=== PATIENT | male | born 1950 | race Caucasian/White ===

== ENCOUNTER 2017-05-26 06:06 | Inpatient (IN) ==
[2017-05-26] MEDS ORDERED: Lidocaine -MPF 1% 2 ML VIAL ID ONE (06:35)
[2017-05-26] MEDS ORDERED: CeFAZolin Pre 2,000 MG/100 ML 2,000 MG/100 ML BAG IVPB ONE (06:35)
[2017-05-26] MEDS ORDERED: Albuterol 2.5 MG/3 ML NEBULIZER IH ONE (06:35)
[2017-05-26] MEDS ORDERED: Albuterol 2.5 MG/3 ML NEBULIZER ONE (06:38)
[2017-05-26] MEDS ORDERED: Ringers Solution, Lactated 1,000 ML IVC SCH (06:45)
[2017-05-26] MEDS ORDERED: Lidocaine -MPF 2% 2 ML VIAL ONE ×2 (07:02→07:20)
[2017-05-26] MEDS ORDERED: *HR* Heparin 5,000 UNIT/ML VIAL ONE (07:02)
[2017-05-26] MEDS ORDERED: Ondansetron 4 MG/2 ML VIAL ONE (07:02)
[2017-05-26] MEDS ORDERED: *HR* Phenylephrine 10 MG/ML VIAL ONE (07:02)
[2017-05-26] MEDS ORDERED: *HR* Rocuronium Bromide 50 MG/5 ML VIAL ONE (07:02)
[2017-05-26] MEDS ORDERED: Lidocaine -MPF 4% 5 ML AMPUL ONE (07:02)
[2017-05-26] MEDS ORDERED: Water for inj. (sterile) 10 ML IV ONE (07:02)
[2017-05-26] MEDS ORDERED: Dexamethasone 4 MG/ML VIAL ONE (07:02)
--- NOTE | 2017-05-26 07:07 | Anesthesia Evaluation PreOp ---
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) Other Medical History: Renal (stones, ckd) Alcohol Use: rarely Drug use: none Medications and Allergies Allergies No Known Allergies Allergy (Verified 05/26/17 06:34) - Meds/Allergy Pre-op Review Medications Reviewed: Yes Allergies Reviewed: Yes Beta Blockers on Current Med List: No Anesthesia Results - Labs Laboratory Tests 05/19/17 05/19/17 05/19/17 07:57 07:57 07:57 WBC 8.7 Hgb 15.9 Hct 47.0 Plt Count 187 PT 10.7 INR 1.0 APTT 30.4 Sodium 142 Potassium 4.4 Chloride 110 H Carbon Dioxide 26 BUN 17 Est GFR ( Amer) > 60 Est GFR (Non-Af Amer) > 60 BUN/Creatinine Ratio 14 Glucose 91 Calculated Osmolality 295 - Imaging EKG: report reviewed, image reviewed (SR; low QRS voltages in limb leads) Additional studies: 05-06-2017 Nuclear stress test: perfusion imaging was negative for ischemia or infarct pharmacologic ECG was negative for ischemia at the level of heart rate achieved patient describes 3 out of 10 chest pain during pharm perfusion imaging which can be nonspecific finding recommend clinical correlation Gated EF = 57% Anesthesia Exam Last Vital Signs Temp 97.7 F 05/26/17 06:46 Pulse 90 05/26/17 06:46 Resp 18 05/26/17 06:46 BP 119/90 05/26/17 06:46 Pulse Ox 98 05/26/17 06:46 Weight: 69 kg NPO (# of Hours): >> 8 hrs - HEENT Pupil (Motor): Pupils equal, EOMI Mallampati: I Teeth: Edentulous Denture Type: Upper: Complete, Lower: Complete Oral Opening: Greater than 3 - INSTRUCTIONAL TECHNOLOGY SPECIALIST LOC: Oriented INSTRUCTIONAL TECHNOLOGY SPECIALIST Motor: Normal RUE, Normal LUE, Normal RLE, Normal LLE, Normal Face - Cardiac Rhythm: Regular Murmur: None - Pulmonary Breath Sounds: bilateral Clear Respiratory Effort: Symmetrical Anesthesia Assess/Plan ASA Score: 3 Modified Casanova Scale for Level of Consciousness: Cooperative, oriented, and tranquil Anesthetic Plan: General Monitoring Plan: Standard Monitors, A-Line Recovery Plan: PACU
[2017-05-26] MEDS ORDERED: *HR* Remifentanil 2 MG VIAL IVP ONE (07:09)
[2017-05-26] MEDS ORDERED: *HR* FentaNYL (PF) 100 MCG/2 ML VIAL ONE (07:09)
[2017-05-26] MEDS ORDERED: *HR* Propofol 200 MG/20 ML VIAL IVP ONE (07:09)
[2017-05-26] MEDS ORDERED: *HR* Midazolam HCl 2 MG/2 ML VIAL ONE (07:09)
[2017-05-26] MEDS ORDERED: Heparin 1,000 UNITS/500 mL NS 1,500 ML ONE (07:16)
[2017-05-26] MEDS ORDERED: EPHEDrine 50 MG/ML VIAL ONE (07:17)
[2017-05-26] MEDS ORDERED: Heparin 1,000 UNITS/500 mL NS 500 ML ONE ×2 (07:24→09:32)
--- NOTE | 2017-05-26 07:32 | History & Physical Report ---
Date of Encounter: 05/26/17 Time of Encounter: 07:25 24 Hour HP Update - Instructions Instructions: If the History and Physical is less than 30 days old and was completed prior to A.M. admission and or procedure and has NOT been updated on calendar day of procedure please complete this update prior to performing procedure. - Update Patient reports changes in Medical Condition: No Changes in examination, assessment, or condition: No Changes in Medication: No Preop tests/diagnostics Reviewed: Yes Surgery Remains Indicated: Yes Consent for Planned Operative Procedure(s) Verified: Yes - Pre-Operative Checklist Preoperative Checklist Indicated: Yes Prophylactic Antibiotic Ordered: Yes Home Medications Include Beta Jessie: No Beta Jessie Taken Today (Day of Surgery): No Beta Jessie Taken Yesterday (Day Prior to Surgery): No Is VTE Prophylaxis Indicated?: Yes
[2017-05-26] MEDS ORDERED: *HR* HYDROmorphone (PF) 1 MG/ML SYRINGE IVP PRN (08:41)
[2017-05-26] MEDS ORDERED: *HR* Labetalol 20 MG/4 ML SYRINGE IVP PRN (08:41)
[2017-05-26] MEDS ORDERED: Dexamethasone 4 MG/ML VIAL IVP ONE (08:41)
[2017-05-26] MEDS ORDERED: *HR* Morphine 2 MG/ML SYRINGE IVP PRN ×2 (08:41→11:40)
[2017-05-26] MEDS ORDERED: Ondansetron 4 MG/2 ML VIAL IVP ONE (08:41)
--- NOTE | 2017-05-26 08:41 | Anesthesia Procedures ---
<Jesus Valencia - Last Filed: 05/26/17 08:40> Date of Encounter: 05/26/17 Procedures: Anesthesia - Arterial Line Consent obtained: verbal consent Time out performed: Yes Sedation: Versed (mg): 2 Supplemental Oxygen via Nasal Cannula (L/min): 2 Local Anesthetic: Lidocaine 1% Amount of Anesthetic used (mls): 0.5 Size (Gauge): 20 Length (inches): 1 3/4 Technique Used: sterile prep, direct puncture technique Post-Procedure: line taped into place, dry sterile dressing placed Patient tolerated procedure: well, no complications Complications: none Site: Radial R Vitals: Vital Signs/O2 Sat/Glucose, Most Recent Temp Pulse Resp BP Pulse Ox 97.7 F 90 18 119/90 98 05/26/17 06:46 05/26/17 06:46 05/26/17 06:46 05/26/17 06:46 05/26/17 06:46 Comments: [facility] <Beulah Lieberman - Last Filed: 05/26/17 11:26> Date of Encounter: 05/26/17 Time of Encounter: 07:35
[2017-05-26] MEDS ORDERED: *HR* Morphine 10 MG/ML VIAL ONE (10:03)
--- NOTE | 2017-05-26 10:20 | Operative Note ---
Date of procedure: 05/26/17 Pre-op diagnosis: AAA Post-op diagnosis: same Procedure: Endovascular repair of AAA(EVAR) using Medtronic Endurant IIs System Open femoral exposure - bilateral Non selective catheter/sheath placement into aorta Endo AAA repair with modular bifurcated device Radiologic Supervision & Interpretation Complications: none Anesthesia: GETA Surgeon: Jose Laguerre Co-Surgeon: Matt Jones Estimated blood loss (cc): 100 Specimen: none Condition: stable Disposition: PACU Procedure in Detail: History Jose Roldan is a 66-year-old white male who was found to have an abdominal aortic aneurysm. He has a remote history of Acosta Fischer A syndrome. He has chronic problems with diminished energy. Procedure After informed consent was obtained the patient was taken to the operating room. General endotracheal anesthesia was established. A timeout protocol was observed. A 2 team surgical approach was indicated in this case in order to expedite complex intraoperative decision making as well as to diminish blood loss and to expedite placement of the endovascular stent graft. The common femoral arteries were then exposed through oblique incisions in the groin bilaterally. This was performed simultaneously. The vessels were exposed and controlled with vessel loops. The vessels were normal in size and soft though there was changes suggesting posterior plaque formation. Using an 18- gauge needle the arteries were punctured and a guidewire was inserted. The needle was removed and a 8 Cuban sheath was placed. The dilator was removed and the sheath was aspirated and flushed. A marker pigtail catheter was then advanced over the right side and placed in the abdominal aorta. The catheter was placed in the supra renal aorta and an abdominal aortogram was then performed. Taking the appropriate measurements and configurations of the vessels the pigtail catheter was removed and then placed on the left side. It should be noted that 5000 units of heparin were administered at the time of the sheath placement in the groin. The main body was placed via the right side. This was a 25 x 14 x 103 mm Endurant IIs device. The suprarenal fixation was also achieved under fluoroscopic control. The docking limb was opened. Then the left side approach was used to cannulate the main body through the left limb. Appropriate positioning was confirmed. Another injury and was performed through a retrograde injection through the left groin sheath. A 16 x 13 x 156 mm device was selected. This was then deployed under fluoroscopic control. The carrier device was removed and the 11 Cuban sheath was then placed into the left groin. Attention was then directed back to the right side. The right side was then completely deployed. The top Was recaptured and then removed. An 11 Cuban sheath was placed into the right groin. The pigtail catheter was placed in the right groin. A retrograde angiogram through the right groin sheath was performed and measurements were taken. The third and final component of the repair was then deployed. This was a 16 x 13 x 124 mm device. This was secured in position and was placed above the iliac bifurcation. With this in position the Reliant balloon was then placed via both the right and left side and the stent graft was gently opened to its full extent using the effect of the balloon. The pigtail catheter was then reinserted via the right side. A completion aortogram was then performed. This demonstrated patency of the renal arteries bilaterally. It also demonstrated patency of the iliac bifurcation bilaterally. There were no findings of endovascular leak area with this done the wire and catheters were removed. The sheaths were then removed from the groin and the puncture sites were repaired with 6-0 Prolene. After appropriate backbleeding and flushing the clamps removed and pulsatile flow was restored into the lower extremities. There was no hemodynamic distress with this maneuver. Excellent pulsations were found in the femoral vessels and this was confirmed by the use of an intraoperative Doppler. The wounds were irrigated with antibiotic containing solution. Hemostasis was achieved. The wounds were then closed using absorbable suture. A dry sterile dressing was applied. The patient was extubated in the operating room. He was neurologically and respiratory stable. He was then taken to the recovery room. Estimated blood loss is 100 mL. There were no intraoperative complications.
--- NOTE | 2017-05-26 10:42 | Anesthesia Evaluation Post Op ---
Date of Encounter: 05/26/17 Time of Encounter: 10:41 - Vital Signs Vital Signs: Vital Signs/O2 Sat, Most Current Temp Pulse Resp BP Pulse Ox 97.4 F L 81 17 123/94 95 05/26/17 10:20 05/26/17 10:30 05/26/17 10:30 05/26/17 10:30 05/26/17 10:30 - Lungs Lungs: Clear Ascult./Percussion - Airway Airway: Non-obstructed - Cardiovascular Regular Rate - Mental Status Mental Status: Alert & Oriented, Answers Appropriately - Pain Pain Scale: 0 Pain Scale used: Numeric (1 - 10) - Hydration Hydration: NPO, Rodarte catheter - Discharge PostOp Status: Transfer Patient to floor
[2017-05-26] MEDS ORDERED: Ondansetron 4 MG/2 ML VIAL IVP PRN (11:40)
[2017-05-26] MEDS ORDERED: Naloxone 0.4 MG/ML INJ IVP PRN (11:40)
[2017-05-26] MEDS ORDERED: Acetaminophen 325 MG TABLET PO PRN (11:40)
[2017-05-26] MEDS: *HR* HYDROcodone/Acet 5/325 mg TABLET PO PRN ×2 (12:58→21:15)
[2017-05-26] MEDS: *HR* Morphine 2 MG/ML SYRINGE IVP PRN ×2 (15:14→19:31)
--- NOTE | 2017-05-26 15:47 | Operative Note ---
Date of procedure: 05/26/17 Pre-op diagnosis: Abdominal Aortic Aneurysm Post-op diagnosis: same Procedure: 1. Introduction of catheter into the aorta via right common femoral artery. 2. Introduction of catheter into the aorta via left common femoral artery. 3. Right common and external iliac artery angioplasty with 8 x 40mm balloon 4. Right femoral vessel exposure for endograft placement. 5. Left femoral vessel exposure for endograft placement. 6. Medtronic Endurant modular bifurcated aortic endograft placement with 1 docking limb including radiologic supervision and interpretation. 7. Placment of Right extension limb including radiologic supervision and interpretation. Complications: None Anesthesia: DUNIA Surgeon: Matt Jones Co-Surgeon: Jose Laguerre Estimated blood loss (cc): 100 Specimen: None Condition: stable Procedure in Detail: The patient was identified, brought to the operating room and placed in the supine position on the operating room table. After induction of general endotracheal anesthesia, the patient was cleaned and draped in normal sterile fashion. Oblique incisions were made over both groins sharply. Hemostasis was obtained with electrocautery. Using blunt and sharp and electrocautery dissection, the bilateral common, deep and superficial femoral arteries were dissected circumferentially and surrounded with Vesseloops. At this point, the patient received heparin intravenously and then bilateral femoral punctures with large-bore needles were performed. J wires were advanced into the aorta under fluoroscopic view. The right wire initially would not advance into the aorta. Therefore a dash catheter and glidewire were used. The patient had a preexisting right common iliac stent. Given the difficulty advancing the wire, an angiogram was performed. An angioplasty was then performed with an 8 x 40mm balloon. A completion image revealed no significant residual stenosis. Given the anatomy, the main body was selected to be the right side in this patient. The needles were exchanged for bilateral sheaths and a long Pigtail catheter was advanced over the right wire into the aortic arch. A retrograde angiogram was performed to evaluate the left iliac system due to the presence of a previously placed iliac stent and possible stenosis on CT scan. The angiogram revealed that the left iliac vessels were appropriate for endograft placement. The wire was removed and an angiogram was then performed via a pigtail catheter for sizing of the graft. The wire was replaced with a stiff wire. The catheter was removed and repositioned in the suprarenal aorta via the left femoral artery. The main body was inserted over the stiff wire with the contralateral limb being in the ipsilateral position. An aortogram was then performed at the level of the renal artery. The graft was positioned just inferior to the renal arteries and the contralateral limb exposed. A final angiogram was performed confirming adequate infrarenal placement. The suprarenal stent was deployed in the usual fashion. The contralateral limb was then selected with a wire using a guiding catheter. Intragraft placement of the wire was confirmed by placing the pigtail and spinning it freely. An oblique view of the pelvis was performed with contrast to size the left extension limb. The sheath was removed and exchanged for the appropriate limb, which was advanced under fluoroscopic view and positioned. It was then expanded. The introducer and graft sheath were exchanged for a sheath. An oblique view of the right pelvis was performed and the length of the extension limb on the right was determined. The sheath was exchanged for the limb and then the limb was deployed. The introducer and graft sheath were exchanged for a sheath. Upon completion of the graft docking limb extension, a Reliant balloon was then advanced into the graft proximal and distal endpoints as well as overlap were expanded with gentle pressure. A flush completion angiogram revealed no evidence of an endoleak. Further imaging of the right femoral vessels revealed no evidience of stenosis. Tension was applied to the Vesseloops in the groin. The sheaths and wires were then removed. The bilateral arteriotomies were repaired with a running 6-0 Prolene. Antibiotic irrigation was infused into the groin. The bilateral groins incisions were closed with 2-0 Vicryl, 3-0 Vicryl and 4-0 Vicryl. Sterile dressings were applied. The patient was then extubated and taken to the recovery room in stable condition. Main Body: [id number] Right Limb: [id number] Left Limb: [id number]
[2017-05-27 08:15] LABS: BUN/Creatinine Ratio 16 (6-26); Blood Urea Nitrogen 17 mg/dL (8-26); Calcium 8.7 mg/dL (8.6-10.8); Carbon Dioxide 25 mEq/L (19-29); Chloride 107 mEq/L (98-109); Glucose 78 mg/dL (70-99); Osmolality,Calculated 290 (280-300); Potassium 3.9 mEq/L (3.5-4.5); Sodium 140 mEq/L (136-145); eGFR For African Americans > 60 (> 60); eGFR For Non-African Americans > 60 (> 60)
[2017-05-27] MEDS: *HR* HYDROcodone/Acet 5/325 mg TABLET PO PRN (08:18)
[2017-05-27 08:30] LABS: Basophils % 0.2 %; Eosinophils # 0.1 K/mcL (0.0-0.6); Eosinophils % 0.5 %; Hematocrit 41.5 % (37.5-50.1); Hemoglobin 13.8 g/dL (12.9-16.9); Immature Granulocytes % 0.6 % (0-4); Lymphocytes # 1.8 K/mcL (0.6-4.6); Lymphocytes % 13.9 %; Mean Corpuscular HGB Conc 33.3 g/dL (31.6-35.5); Mean Corpuscular Hemoglobin 31.4 pg (28.0-33.3); Mean Corpuscular Volume 94.3 fL (83.0-100.0); Monocytes # 0.9 K/mcL (0.0-1.3); Monocytes % 7.3 %; Neutrophils # 9.8 K/mcL (1.6-8.9); Platelet Count 150 K/mcL (140-400); Red Cell Distribution Width 13.5 % (11.5-14.5); Segmented Neutrophils % 77.5 %
[2017-05-27] MEDS ORDERED: (Fluticasone/Vilanterol [Breo Ellipta 100-25 Mcg Inh]) IH SCH (10:00)
[2017-05-27 11:41] VITALS: BP 98/68
--- NOTE | 2017-05-27 12:46 | Discharge Summary ---
Date of Encounter: 05/27/17 Time of Encounter: 12:43 - Discharge Diagnosis (1) AAA (abdominal aortic aneurysm) without rupture Priority: Primary Status: Acute Comments: Patient had an abdominal aortic aneurysm. He was identified on scanning. He was prepared for surgery. Operation was performed yesterday without incident. He tolerated the operation and a general anesthetic without complication. He was felt fit for discharge on postoperative day #1. - Discharge Medications Home Medications: Fluticasone/Vilanterol [Breo Ellipta 100-25 Mcg INH] 1 each IH DAILY 05/26/17 [ History] Sertraline [Zoloft] 100 mg PO CAVAZOS 05/26/17 [History] Allergies/Adverse Reactions: Allergies No Known Allergies Allergy (Verified 05/26/17 07:48) Date of admission: 05/26/17 10:53 Primary care physician: Nieves Casper CNP Consults: None Procedure(s) Performed: Endovascular repair of abdominal aortic aneurysm Discharging clinician: Jose Laguerre Anticipated date of discharge: 05/27/17 - Patient Status Disposition: Home, Self-Care Condition: Good Functional capacity at discharge: independent ambulation Overall status at discharge: patient is progressing back to baseline - Discharge Instructions Instructions: Abdominal Aortic Aneurysm (DC), Endovascular Abdominal Aortic Aneurysm Repair (DC) Follow Up With: Nieves Casper CNP [Primary Care Provider] - (SENT REQUEST ON 05-26-17 @ [id number]) Jose Laguerre MD [Partnered Physician] - 06/17/17 9:45 am Additional Instructions: Keep groin incisions dry for total of 5 days following surgery. No automobile driving. No lifting greater than 10 pounds No manual labor Patient may ambulate as tolerated and may use stairs as tolerated Patient may be a passenger in an automobile Patient is to resume usual home medications - Diet and Activity Activity: increase activity as tolerated Diet: advance to your usual diet - Hospital Course Hospital course: Mr. Rlodan is a 66 year old male With a known abdominal aortic aneurysm. Patient was admitted yesterday. He underwent an endovascular repair of an abdominal aortic aneurysm. There were no periprocedural complications. Approximately 90 mL of contrast were used. The patient had uneventful postoperative course. He was felt fit for discharge on the afternoon of postoperative day #1. Instructions were given in regards to diet and exercise medications and wound care. - Time Spent with Patient Total time spent providing and/or coordinating discharge services: Exam Vital Signs, Last 4 Hours Temp Pulse Resp BP Pulse Ox 05/27/17 11:36 98.8 F 71 13 98/68 92 General: Present: Conversant, No Apparent Distress, Well developed, Well nourished HEENT: Present: Atraumatic Neck: Absent: JVD Cardiac: Present: Reg Rate and Rhythm, Normal S1 and S2 Lungs: Present: Normal Breath Sounds Neuro: Present: Alert and responsive, No focal deficits noted, Cranial nerves grossly intact, Motor nerves grossly intact, Sensory nerves grossly intact Abdomen: Present: Soft, Non-tender. Absent: Masses Vascular: Present: Pulse, normal, Surgical incisions (Surgical incisions are clean and dry) Skin: Present: No rashes noted on visualized skin - VTE Documentation of Mechanical Device: Intermittent pneumatic compression device
== END 2017-05-27 13:36 | disposition home or self-care (01) | DRG 269 ==
LOC: SAMDAY 06:06 → 2NNU 10:53
PROVIDERS: ADMIT Surgery Vascular Surgery; ATTEND Surgery Vascular Surgery

== ENCOUNTER 2017-09-20 18:29 | Inpatient (IN) ==
[2017-09-20] MEDS ORDERED: 0.9 % Sodium Chloride 1,000 ML IVC ONE (18:39)
[2017-09-20] MEDS ORDERED: Azithromycin 500 MG in D5% in Water 250 ML IVPB ONE (18:39)
[2017-09-20] MEDS ORDERED: cefTRIAXone 2,000 MG in Water for inj. (sterile) 10 ML IVP ONE (18:39)
[2017-09-20] MEDS ORDERED: Ipratropium/Albuterol Neb 3 ML IH ONE (18:45)
[2017-09-20] MEDS ORDERED: Piperacillin/Tazobactam 3.375 GM in Water for inj. (sterile) 20 ML IVPB ONE (18:50)
[2017-09-20] MEDS ORDERED: Vancomycin 1,000 MG in D5% in Water 250 ML IVPB ONE (18:50)
[2017-09-20 19:23] LABS: Basophils % 0.3 %; Hematocrit 43.7 % (37.5-50.1); Hemoglobin 14.8 g/dL (12.9-16.9); Immature Granulocytes % 0.6 % (0-4); Immature Platelets 6.9 % (1.1-6.1); Lymphocytes # 0.5 K/mcL (0.6-4.6); Lymphocytes % 7.7 %; Mean Corpuscular HGB Conc 33.9 g/dL (31.6-35.5); Mean Corpuscular Hemoglobin 31.6 pg (28.0-33.3); Mean Corpuscular Volume 93.2 fL (83.0-100.0); Mean Platelet Volume 11.2 fL (9.4-12.4); Monocytes # 0.3 K/mcL (0.0-1.3); Monocytes % 3.9 %; Red Blood Count 4.69 M/mcL (4.19-5.50); Red Cell Distribution Width 13.7 % (11.5-14.5); Segmented Neutrophils % 87.5 %
--- NOTE | 2017-09-20 19:32 | Emergency Department Note ---
Disposition Clinical Impression: Acute exacerbation of chronic obstructive airways disease, Acute respiratory distress, Hypoxemia Community acquired pneumonia Qualifiers: Laterality: unspecified laterality Qualified Code(s): J18.9 - Pneumonia, unspecified organism Disposition: Admitted As Inpatient Condition: Fair Referrals: Nieves Casper CNP [Primary Care Provider] - Forms: ED Satisfaction Letter Time of Disposition: 20:21 SOB HPI - General Chief Complaint: ED Shortness of Breath/Dyspnea Stated Complaint: KENNY, fever Time Seen by Provider: 09/20/17 18:37 Source: EMS Limitations: no limitations Nursing Notes Reviewed: Yes Vital Signs Reviewed: Yes - History of Present Illness Patient presents with shortness of breath for the last one week which is constant and progressively worsening and he had such severe shortness of breath he was not even able to walk to the car so they called EMS which transported him to the emergency department. Did have a temperature 103 degrees last night. Has not seen a doctor. Is not taking any medications. At one point had been on home oxygen but felt like it was not helping him so he stopped taking it. The patient does not have any pain or swelling of the lower extremities. No chest pain. Does have rhinorrhea, cough, sneezing. No blurred vision. No blood in the urine or stool. No bruising the skin. Does have a rash on the right arm and in the left axillary area and the left flank. Social history: Smoker - Related Data Home Medications Medication Instructions Recorded Confirmed Fluticasone/Vilanterol [Breo 1 each IH DAILY 05/26/17 05/26/17 Ellipta 100-25 Mcg INH] Sertraline [Zoloft] 100 mg PO CAVAZOS 05/26/17 05/26/17 Allergies Allergy/AdvReac Type Severity Reaction Status Date / Time No Known Allergies Allergy Verified 05/26/17 07:48 Review of Systems: As Per HPI Past Medical History - Past Medical History Medical history: Reports: aortic aneurysm, COPD, hyperlipidemia Psychiatric history: Reports: anxiety - Social History Smoking Status: Current every day smoker Smokeless Tobacco Status: No Alcohol use: Reports: rarely Drug use: Reports: none Physical Exam CONSTITUTIONAL: Alert and oriented X3, thin, moderate to severe respiratory distress, nonrebreather mask in place with oxygen saturation 95% HEAD: Normocephalic; atraumatic. EYES: PERRL, no scleral icterus. NOSE: The nose is normal in appearance without rhinorrhea RESP: Normal chest excursion with respiration; breath sounds with bilateral wheezing and crackles which is symmetric CARD: Regular rhythm, without murmurs, rub or gallop ABD: Non-distended; non-tender, soft,without rigidity, rebound or guarding SKIN: Normal for age and race; warm and dry; there is a maculopapular rash over the right forearm and left axillary area and left flank and some of these are petechial and a few do magdalena with pressure. No vesicles. - General Limitations: no limitations General appearance: alert, in no apparent distress Course Vital Signs Temperature 98.8 F 09/20/17 18:37 Pulse Rate 108 09/20/17 18:37 Respiratory Rate 22 09/20/17 18:37 Blood Pressure 110/73 09/20/17 18:37 O2 Sat by Pulse Oximetry 92 09/20/17 18:37 Temperature 98.8 F 09/20/17 18:37 Pulse Rate 95 09/20/17 20:10 Respiratory Rate 18 09/20/17 20:10 Blood Pressure 101/71 09/20/17 20:10 O2 Sat by Pulse Oximetry 96 09/20/17 20:10 Oxygen Delivery Oxygen Delivery Non Rebreather Mask Shortness of Breath/Dyspnea - MDM Narrative Medical decision making narrative: Concern for sepsis and labs are initiated including a lactate level, blood cultures, CBC and metabolic profile. I did review the radiology interpretation the chest x-ray showing severe emphysema. The patient did have a temperature 103 degrees and clinically does have lung infection and therapy as directed towards that. Was here in May for his abdominal aortic aneurysm endovascular repair and for that reason I did initiate therapy which would cover against hospital organisms including Zosyn and vancomycin. The patient does have an oxygen saturation 95% 1932 I did review the EKG showing sinus tachycardia with a rate of 108 bpm. There is a low voltage. Lactate level is 1.4 1952 I did review the patient's labs and do speak with the hospitalist who accepted the patient for admission. His oxygen saturation currently is 98% on nonrebreather mask tried to decrease his oxygen to 3 L nasal cannula with a goal to keep the saturation between 90 and 92%. The patient is mentating well. Will be admitted and watched closely here in the hospital with antibiotics, DuoNeb and steroids 2019 - Medical Records Medical records reviewed: Yes I reviewed the patient's medical records. - Lab Data Lab results reviewed: Yes I reviewed the patient's lab results. Result diagrams: 09/20/17 19:13 09/20/17 19:13 Lab Results 09/20/17 09/20/17 09/20/17 Range/Units 19:13 19:13 19:13 WBC 6.9 (4.3-11.1) K/mcL RBC 4.69 (4.19-5.50) M/mcL Hgb 14.8 (12.9-16.9) g/dL Hct 43.7 (37.5-50.1) % MCV 93.2 (83.0-100.0) fL MCH 31.6 (28.0-33.3) pg MCHC 33.9 (31.6-35.5) g/dL RDW 13.7 (11.5-14.5) % Plt Count 94 L (140-400) K/mcL MPV 11.2 (9.4-12.4) fL Immature Gran % 0.6 (0-4) % Seg Neutrophils % 87.5 % Lymphocytes % 7.7 % Monocytes % 3.9 % Eosinophils % 0.0 % Basophils % 0.3 % Neutrophils # 6.0 (1.6-8.9) K/mcL Lymphocytes # 0.5 L (0.6-4.6) K/mcL Monocytes # 0.3 (0.0-1.3) K/mcL Eosinophils # 0.0 (0.0-0.6) K/mcL Basophils # 0.0 (0.0-0.2) K/mcL Reactive Lymphocytes Present A (Not Present) Platelet Estimate Decreased L (Normal) Immature Plt Fraction 6.9 H (1.1-6.1) % Sodium 137 (136-145) mEq/L Potassium 4.0 (3.5-4.5) mEq/L Chloride 109 (98-109) mEq/L Carbon Dioxide 25 (19-29) mEq/L BUN 19 (8-26) mg/dL Creatinine 1.06 (0.72-1.25) mg/dL Est GFR ( Amer) > 60 (> 60) Est GFR (Non-Af Amer) > 60 (> 60) BUN/Creatinine Ratio 18 (6-26) Glucose 134 H (70-99) mg/dL Calculated Osmolality 288 (280-300) Lactic Acid 1.4 (0.5-2.2) mmol/L Calcium 8.4 L (8.6-10.8) mg/dL - Radiology Data Radiology results reviewed: Yes I reviewed the patient's radiology results. Critical Care Time Critical Care Time: Yes Attestation: 30 minutes of critical care time was found the patient with acute respiratory distress, hypoxemia with a saturation in the 70s, hypotension and tachycardia. Antibiotics, IV steroids, DuoNeb, multiple reassessments.
[2017-09-20 19:35] LABS: BUN/Creatinine Ratio 18 (6-26); Blood Urea Nitrogen 19 mg/dL (8-26); Calcium 8.4 mg/dL (8.6-10.8); Carbon Dioxide 25 mEq/L (19-29); Chloride 109 mEq/L (98-109); Glucose 134 mg/dL (70-99); Osmolality,Calculated 288 (280-300); Sodium 137 mEq/L (136-145); eGFR For African Americans > 60 (> 60); eGFR For Non-African Americans > 60 (> 60)
[2017-09-20 19:43] LABS: Platelet Count 94 K/mcL (140-400)
[2017-09-20 19:44] LABS: Platelet Estimate Decreased (Normal)
[2017-09-20 19:45] LABS: Reactive Lymphocytes Present (Not Present)
[2017-09-20] MEDS ORDERED: Dexamethasone 4 MG/ML VIAL IVP ONE (20:42)
[2017-09-21] MEDS ORDERED: 0.9 % Sodium Chloride 1,000 ML IVC ONE (00:03)
[2017-09-21] MEDS ORDERED: Acetaminophen 325 MG TABLET PO PRN (00:03)
[2017-09-21] MEDS ORDERED: *HR* Promethazine 25 MG/ML VIAL IVP PRN (00:03)
[2017-09-21] MEDS ORDERED: Albuterol 2.5 MG/3 ML NEBULIZER IH PRN (00:03)
[2017-09-21] MEDS ORDERED: Naloxone 0.4 MG/ML INJ IVP PRN (00:03)
[2017-09-21] MEDS ORDERED: 0.9 % Sodium Chloride 1,000 ML IVC SCH (00:15)
[2017-09-21 00:26] LABS: INR 1.1; Prothrombin Time 11.8 Seconds (9.4-12.1)
[2017-09-21 00:29] LABS: Activated Partial Thrombo Time 33.5 Seconds (26.0-36.0)
--- NOTE | 2017-09-21 00:29 | Internal Med History&Physical ---
Date of Encounter: 09/20/17 Time of Encounter: 23:40 Assessment and Plan (1) Severe sepsis Current visit: Yes Status: Acute 1. I suspect source is lung from community acquired pneumonia. 2. Blood cultures drawn in ER. 3. Will try to obtain sputum culture and gram stain. 4. Will treat with IV Vancomycin, Rocephin, and Zithromax. 5. Will give another fluid bolus and trend lactate. Initial lactate WNL. 6. Will place on maintenance IVF. 7. Monitor vitals and clinical exam as he may need pressors for hemodynamic support. Steroids will be given as well for both AECOPD and sepsis. (2) Acute exacerbation of chronic obstructive airways disease Current visit: Yes Status: Acute 1. Will continue antibiotics as above. 2. Will place on IV steroids, oxygen, and scheduled steroids. 3. Monitor clinically. 4. Trigger is likely pneumonia/sepsis. (3) Thrombocytopenia Current visit: Yes Status: Acute 1. Likely due to sepsis. 2. Will trend platelet count and monitor as treatment ensues for sepsis. 3. No history or sign of bleeding. (4) DVT prophylaxis Current visit: Yes Status: Acute 1. EPCD's. 2. Will hold off anti-coagulants for now due to thrombocytopenia. Internal Medicine - H&P: HPI Chief complaint: fever; SOB; cough; wheeze Admitted From: Emergency Dept Plans for Post Hospital Care: Home History of present illness: Mr. Roldan is a 66 year old male who presents with a one-week history of fevers to 103 degrees Fahrenheit, cough, shortness of breath, chills, and night sweats. He was able to suppress his fever with Tylenol, but it has progressively worsened to the point where he could not walk without profound dyspnea, severe generalized weakness, and significant respiratory distress. He therefore came to the ER for evaluation. In the ER, he received some fluid bolus, blood cultures were drawn, and he was given empiric IV antibiotics for possible pneumonia. He was also treated for COPD flare up. He was subsequently admitted to the hospitalist service. Upon my assessment of the patient, he appears to be quite ill. He appears to be quite jittery, tachycardic, weak, and dehydrated. He is drenched in sweat and he states he just broke a fever. He feels better now than he did upon presentation to the ER. He responded to aerosols and is breathing better. He admits he's been coughing productively for almost a week now and he's had fevers up to 103 Fahrenheit. He has a sparse petechial rash on his extremities and torso, which he states started a few days ago. He denies any headache, neck pain, or back pain. His had similar symptoms last week and has recovered. He was hopeful that he would recover and that this was a viral process. However, given his clinical presentation and significant symptoms, I am concerned that he has severe sepsis and we will treat him as such. I am moving him from the observation unit to 2 NE -- telemetry unit for closer monitoring and treatment. Past Med Surg Social Fam HX - Past Medical History Attestation: Yes The following information was validated with the patient. Source: patient, old records reviewed Medical history: aortic aneurysm, COPD, hyperlipidemia Psychiatric history: anxiety - Past Surgical History Surgical History: vascular surgery (AAA repair) - Social History Smoking Status: Current every day smoker Smokeless Tobacco Status: No Alcohol use: rarely Drug use: none Current living situation: Home, With Family Activity Level: Independent ambulation Recent Out of Country Travel Within the Last 8 Weeks: No - Family History Mother History Unknown: Yes Father Living Status: Hx Family Respiratory Disorders: No Internal Medicine - H&P: Meds Fluticasone/Vilanterol [Breo Ellipta 100-25 Mcg INH] 1 each IH DAILY 05/26/17 [ History] Sertraline [Zoloft] 100 mg PO CAVAZOS 05/26/17 [History] 3 Allergy/AdvReac Type Severity Reaction Status Date / Time No Known Allergies Allergy Verified 05/26/17 07:48 - Constitutional Constitutional: chills, fatigue, fever(s), night sweats, weakness - EENT Eyes: no blurry vision, no change in vision Ears: no ear pain, no tinnitus Nose, mouth and throat: no nasal congestion, no sinus pressure, no sore throat - Cardiovascular Cardiovascular ROS IM: dyspnea, dyspnea on exertion, no chest pain, no edema, no orthopnea, no paroxysmal nocturnal dyspnea, no syncope - Respiratory Respiratory: cough, dyspnea, dyspnea on exertion, wheezing, chest congestion, excessive phlegm production, change in phlegm color, no hemoptysis, no pain on inspiration - Gastrointestinal Gastrointestinal: no abdominal pain, no diarrhea, no hematemesis, no hematochezia, no melena, no nausea, no vomiting - Genitourinary Genitourinary ROS male: no dysuria, no flank pain, no hematuria - Musculoskeletal Musculoskeletal ROS IM: muscle weakness, myalgias, no arthralgias, no back pain - Integumentary Integumentary IM: rash (petechial), no jaundice - Neurological Neurological ROS: weakness, no focal weakness, no frequent falls, no headache(s) , no numbness - Psychiatric Psychiatric: no anxiety, no depression - Endocrine Endocrine IM: no cold intolerance, no heat intolerance, no polydipsia, no polyuria - Hematologic/Lymphatic Hematologic/Lymphatic: no easy bruising, no lymphadenopathy - Allergic/Immunologic Allergic/Immunologic: wheezing, no GI upset with certain foods - Constitutional Vitals: Temp Pulse Resp BP Pulse Ox 98.3 F 58 16 107/72 92 09/21/17 00:06 09/21/17 00:06 09/21/17 00:06 09/21/17 00:06 09/21/17 00:06 General appearance: Present: cooperative, mild distress, A&O X 3, answers questions appropriately Exam: patient appears quite ill; non-toxic, but jittery, weak, and drenched in sweat - Head Head exam: Present: atraumatic, normal inspection - Eye Eye exam: Present: EOMI, normal appearance, PERRL. Absent: scleral icterus Pupils: Present: normal accommodation - ENT ENT exam: Present: mucous membranes dry, normal exam - Neck Neck exam general surgery: Present: full ROM, supple. Absent: lymphadenopathy, tenderness, nuchal rigidity, thyromegaly - Respiratory Respiratory exam: Present: accessory muscle use, prolonged expiratory phase, rales (right base), respiratory distress, wheezes, tachypnea. Absent: chest wall tenderness, rhonchi - Cardiovascular Cardiovascular exam: Present: RRR, +S1, +S2, tachycardia. Absent: diastolic murmur, JVD, systolic murmur - GI/Abdominal GI/Abdominal exam: Present: normal bowel sounds, soft. Absent: guarding, hepatomegaly, mass, rebound, splenomegaly, tenderness - Extremities Exam Extremities exam: Present: full ROM, normal capillary refill, warm, radial pulses palpable and symmetrical. Absent: calf tenderness, cyanotic, joint swelling, pedal edema, tenderness - Back Exam Back exam: Absent: CVA tenderness (L), CVA tenderness (R) - Neurological Exam Neurological exam: Present: alert, CN II-XII intact, oriented X3, no focal deficits, strengths equal and symetr throughout Additional comments: Negative Kernig; Negative Brudzinski signs - Psychiatric Psychiatric exam: Present: anxious - Skin Skin exam: Present: dry, petechiae, warm. Absent: rash Internal Med - H&P Results - Labs CBC & Chem 7: 09/20/17 19:13 09/20/17 19:13 - EKG Data -: EKG Interpreted by Myself - EKG Data Prior EKG available for review: no EKG comments: 09/21/17 00:35 Sinus tachycardia - Diagnostic Studies Chest x-ray Status: image reviewed by me (haziness in the RML; otherwise negative; Radiology read as negative)
[2017-09-21] MEDS ORDERED: Vancomycin (wt based) 1,000 MG VIAL IVPB SCH (01:00)
[2017-09-21] MEDS ORDERED: cefTRIAXone 2,000 MG in Water for inj. (sterile) 20 ML IVP SCH (01:00)
[2017-09-21 02:45] LABS: Basophils % 0.3 %
[2017-09-21 02:47] LABS: Hematocrit 41.9 % (37.5-50.1); Hemoglobin 14.2 g/dL (12.9-16.9); Immature Granulocytes % 1.2 % (0-4); Immature Platelets 8.1 % (1.1-6.1); Lymphocytes # 0.5 K/mcL (0.6-4.6); Mean Corpuscular HGB Conc 33.9 g/dL (31.6-35.5); Mean Corpuscular Hemoglobin 32.1 pg (28.0-33.3); Mean Corpuscular Volume 94.6 fL (83.0-100.0); Mean Platelet Volume 10.6 fL (9.4-12.4); Monocytes # 0.3 K/mcL (0.0-1.3); Monocytes % 2.9 %; Neutrophils # 8.4 K/mcL (1.6-8.9); Red Blood Count 4.43 M/mcL (4.19-5.50); Red Cell Distribution Width 13.7 % (11.5-14.5); Segmented Neutrophils % 90.6 %
[2017-09-21 02:48] LABS: INR 1.1; Prothrombin Time 11.6 Seconds (9.4-12.1)
[2017-09-21 02:50] LABS: Platelet Count 96 K/mcL (140-400)
[2017-09-21 02:51] LABS: Activated Partial Thrombo Time 32.6 Seconds (26.0-36.0)
[2017-09-21 02:58] LABS: Alanine Aminotransferase 26 Units/L (0-55); Albumin 2.4 g/dL (3.5-5.0); Albumin/Globulin Ratio 0.7 (1.1-2.2); Alkaline Phosphatase 59 Units/L (38-126); Aspartate Amino Transferase 38 Units/L (5-34); BUN/Creatinine Ratio 16 (6-26); Bilirubin,Total 0.4 mg/dL (0.2-1.2); Blood Urea Nitrogen 18 mg/dL (8-26); Calcium 8.4 mg/dL (8.6-10.8); Carbon Dioxide 22 mEq/L (19-29); Chloride 107 mEq/L (98-109); Globulin 3.6 g/dL (2.4-3.5); Glucose 157 mg/dL (70-99); Magnesium 1.4 mg/dL (1.6-2.6); Osmolality,Calculated 297 (280-300); Potassium 4.4 mEq/L (3.5-4.5); Sodium 141 mEq/L (136-145); eGFR For African Americans > 60 (> 60); eGFR For Non-African Americans > 60 (> 60)
[2017-09-21 03:04] LABS: Platelet Estimate Decreased (Normal)
[2017-09-21 03:05] LABS: Reactive Lymphocytes Present (Not Present)
[2017-09-21] MEDS: Azithromycin 500 MG in D5% in Water 250 ML IVPB SCH (03:18)
[2017-09-21] MEDS: Ipratropium/Albuterol Neb 3 ML IH SCH ×7 (04:32→23:06)
[2017-09-21] MEDS ORDERED: Aminoglycoside Consult 1 EACH MC ONE (07:40)
[2017-09-21] MEDS ORDERED: Vancomycin 1,000 MG in D5% in Water 250 ML IVPB SCH (08:00)
[2017-09-21] MEDS: methylPREDNISolone 125 MG/2 ML VIAL IVP SCH ×2 (08:20→16:11)
[2017-09-21 10:46] LABS: Adenovirus Not Detected (Not Detect); Bordetella Pertussis Not Detected (Not Detect); Chlamydophila pneumoniae Not Detected (Not Detect); Coronavirus 229E Not Detected (Not Detect); Coronavirus HKU1 Not Detected (Not Detect); Coronavirus NL63 Not Detected (Not Detect); Coronavirus OC43 Not Detected (Not Detect); Human Metapneumovirus Not Detected (Not Detect); Human Rhinovirus/Enterovirus Not Detected (Not Detect); Influenza A Subtype 2009 H1 Not Detected (Not Detect); Influenza A Untypeable Not Detected (Not Detect); Influenza B Not Detected (Not Detect); Mycoplasma pneumoniae Not Detected (Not Detect); Parainfluenza Virus 1 Not Detected (Not Detect); Parainfluenza Virus 2 Not Detected (Not Detect); Parainfluenza Virus 3 Not Detected (Not Detect); Parainfluenza Virus 4 Not Detected (Not Detect); Respiratory Syncytial Virus Not Detected (Not Detect)
--- NOTE | 2017-09-21 15:12 | Internal Med Progress Note ---
Date of Encounter: 09/21/17 Time of Encounter: 09:50 - Assessment and plan (1) Severe sepsis Current Visit: Yes Status: Acute Assessment and plan: Sepsis possibly due to underlying pneumonia. Chest x-ray done today shows increased interstitial markings concerning for interstitial lung disease or bilateral pneumonia. Patient does not have an elevated WBC count. He did have fevers at home. Respiratory panel is entirely negative. Continue treating with IV antibiotics while we wait for culture results. (2) Acute respiratory failure with hypoxia Current Visit: Yes Status: Acute Assessment and plan: Patient continues to be hypoxic and requiring 4 L O2 supplementation. Most likely due to COPD with superimposed pneumonia. Wean FiO2 as tolerated while treating underlying conditions. High risk for complications. (3) Acute exacerbation of chronic obstructive airways disease Current Visit: Yes Status: Acute Assessment and plan: Continue bronchodilators and IV steroids. Continue Rocephin and azithromycin. O2 supplementation. (4) DVT prophylaxis Current Visit: Yes Status: Acute (5) Thrombocytopenia Current Visit: Yes Status: Acute Assessment and plan: Platelets 96 today. Holding off on anticoagulation due to thrombocytopenia. Continue EPCD for DVT prophylaxis. - Subjective Interval history: Patient is awake and alert. Feels somewhat better compared to yesterday. Denies any chest pain. Continues to have cough - Constitutional Vitals: Temp Pulse Resp BP Pulse Ox 97.9 F 89 16 101/67 93 09/21/17 10:59 09/21/17 10:59 09/21/17 11:06 09/21/17 10:59 09/21/17 11:06 General appearance: Present: cooperative, mild distress, A&O X 3, answers questions appropriately - Respiratory Respiratory exam: Present: decreased breath sounds (Decreased air entry bilaterally), prolonged expiratory phase. Absent: accessory muscle use, rales, rhonchi, wheezes - Cardiovascular Cardiovascular exam: Present: RRR, +S1, +S2. Absent: diastolic murmur, gallop, rubs, systolic murmur - GI/Abdominal GI/Abdominal exam: Present: normal bowel sounds, soft, no peritoneal signs. Absent: distended, tenderness - Extremities Exam Extremities exam: Present: warm, radial pulses palpable and symmetrical. Absent : calf tenderness, cyanotic, pedal edema - Neurological Exam Neurological exam: Present: alert, oriented X3, no focal deficits. Absent: facial droop, speech deficit - Skin Skin exam: Present: dry, intact Internal Medicine: Result - Labs CBC & Chem 7: 09/21/17 02:34 09/21/17 02:34 Labs: Short CBC 09/21/17 Range/Units 02:34 WBC 9.3 (4.3-11.1) K/mcL Hgb 14.2 (12.9-16.9) g/dL Hct 41.9 (37.5-50.1) % Plt Count 96 L (140-400) K/mcL Neutrophils # 8.4 (1.6-8.9) K/mcL BMP 09/21/17 02:34 Sodium 141 Potassium 4.4 Chloride 107 Carbon Dioxide 22 BUN 18 Creatinine 1.14 Glucose 157 H Calcium 8.4 L Liver Function 09/21/17 Range/Units 02:34 Total Bilirubin 0.4 (0.2-1.2) mg/dL AST 38 H (5-34) Units/L ALT 26 (0-55) Units/L Alkaline Phosphatase 59 (38-126) Units/L Albumin 2.4 L (3.5-5.0) g/dL - ABG Interpretation ABG results: PT/INR, D-dimer PT 11.6 Seconds (9.4-12.1) 09/21/17 02:34 - Impressions Impressions Chest X-Ray 09/21/17 07:53 IMPRESSION: Moderate increase lung markings both lung bases with evidence for emphysematous change in both upper lobes. This may represent bronchovascular crowding due to upper lobe emphysematous change ; dependent pulmonary edema; progression of chronic interstitial lung disease since 2012; or bibasilar pneumonia. RECOMMENDATION: Clinical and imaging follow-up recommended. D/ / James Greene MD / James Greene MD Interpreting Provider: James Greene MD Consult Discharge Plan - Plan Referrals: Nieves Casper CNP [Primary Care Provider] - 09/29/17 9:00 am
[2017-09-22] MEDS: methylPREDNISolone 125 MG/2 ML VIAL IVP SCH ×3 (00:52→21:37)
[2017-09-22] MEDS: Azithromycin 500 MG in D5% in Water 250 ML IVPB SCH (00:52)
[2017-09-22] MEDS ORDERED: cefTRIAXone 2,000 MG in Water for inj. (sterile) 20 ML IVP SCH (01:00)
[2017-09-22] MEDS: Ipratropium/Albuterol Neb 3 ML IH SCH ×6 (04:45→23:28)
--- NOTE | 2017-09-22 12:49 | Internal Med Progress Note ---
Date of Encounter: 09/22/17 Time of Encounter: 12:49 - Assessment and plan (1) Acute exacerbation of chronic obstructive airways disease Current Visit: Yes Status: Acute Assessment and plan: Continue bronchodilators and IV steroids. Continue Rocephin and azithromycin. O2 supplementation. monitor O2 sat, O2 sat goal: 88-92% (2) Community acquired pneumonia Current Visit: Yes Status: Acute Assessment and plan: continue abx f/u blood cultures O2 supplementation Qualifiers: Laterality: unspecified laterality Qualified Code(s): J18.9 - Pneumonia, unspecified organism (3) Severe sepsis Current Visit: Yes Status: Resolved (4) DVT prophylaxis Current Visit: Yes Status: Acute Assessment and plan: ICD (5) Thrombocytopenia Current Visit: Yes Status: Acute Assessment and plan: Holding off on anticoagulation due to thrombocytopenia. Continue EPCD for DVT prophylaxis. (6) Acute respiratory failure with hypoxia Current Visit: Yes Status: Acute Assessment and plan: Patient continues to be hypoxic and requiring O2 supplementation. Reports of not being on Home oxygen, continue to wean off O2 as tolerated. Goal O2 sat: 88- 92% Most likely due to COPD with superimposed pneumonia. Wean FiO2 as tolerated while treating underlying conditions. High risk for complications. (7) Tobacco abuse Current Visit: Yes Status: Acute Assessment and plan: smoking cessation counseling provided pt not ready to quit refused nicotine replacement therapy - Subjective Interval history: Pt seen and examined at bedside. Resting in bed and reports of feeling better compared to previous day. Reports of being an everyday smoker, smoking 1.5ppd. Has history of COPD however not on any long acting bronchodilators or rescue inhalers at home - Constitutional Vitals: Temp Pulse Resp BP Pulse Ox 97.9 F 89 16 111/71 92 09/22/17 10:54 09/22/17 10:54 09/22/17 11:09 09/22/17 10:54 09/22/17 11:09 General appearance: Present: cooperative, A&O X 3, pleasant, no acute distress, answers questions appropriately - Head Head exam: Present: atraumatic, normocephalic - Eye Eye exam: Present: conjuntiva pink, sclera anicteric - Respiratory Respiratory exam: Present: decreased breath sounds. Absent: respiratory distress, wheezes - Cardiovascular Cardiovascular exam: Present: RRR, +S1, +S2. Absent: diastolic murmur, gallop, rubs, systolic murmur - GI/Abdominal GI/Abdominal exam: Present: normal bowel sounds, soft, no peritoneal signs. Absent: distended, tenderness - Extremities Exam Extremities exam: Present: warm, radial pulses palpable and symmetrical. Absent : calf tenderness, pedal edema - Neurological Exam Neurological exam: Present: alert, oriented X3 Internal Medicine: Result - Labs CBC & Chem 7: 09/21/17 02:34 09/21/17 02:34 - ABG Interpretation ABG results: PT/INR, D-dimer PT 11.6 Seconds (9.4-12.1) 09/21/17 02:34 Consult Discharge Plan - Plan Referrals: Nieves Casper CNP [Primary Care Provider] - 09/29/17 9:00 am
[2017-09-23] MEDS: Ipratropium/Albuterol Neb 3 ML IH SCH ×5 (04:43→20:26)
[2017-09-23 06:54] LABS: BUN/Creatinine Ratio 25 (6-26); Blood Urea Nitrogen 20 mg/dL (8-26); Calcium 7.9 mg/dL (8.6-10.8); Carbon Dioxide 19 mEq/L (19-29); Chloride 113 mEq/L (98-109); Glucose 131 mg/dL (70-99); Magnesium 1.6 mg/dL (1.6-2.6); Osmolality,Calculated 300 (280-300); Phosphorous 2.3 mg/dL (2.3-4.7); Sodium 143 mEq/L (136-145); eGFR For African Americans > 60 (> 60); eGFR For Non-African Americans > 60 (> 60)
[2017-09-23 06:56] LABS: Potassium 3.2 mEq/L (3.5-4.5)
[2017-09-23 07:31] LABS: Hematocrit 35.1 % (37.5-50.1); Mean Corpuscular HGB Conc 34.2 g/dL (31.6-35.5); Mean Corpuscular Hemoglobin 31.3 pg (28.0-33.3); Mean Corpuscular Volume 91.4 fL (83.0-100.0); Mean Platelet Volume 11.1 fL (9.4-12.4); Red Blood Count 3.84 M/mcL (4.19-5.50)
[2017-09-23] MEDS: methylPREDNISolone 125 MG/2 ML VIAL IVP SCH (08:11)
[2017-09-23] MEDS: cefTRIAXone 1,000 MG in Water for inj. (sterile) 10 ML IVP SCH (08:11)
[2017-09-23] MEDS: Azithromycin 250 MG TABLET PO SCH (08:11)
[2017-09-23 08:16] LABS: Platelet Count 170 K/mcL (140-400)
[2017-09-23 08:17] LABS: Lymphocytes # 1.1 K/mcL (0.6-4.6); Neutrophils # 12.5 K/mcL (1.6-8.9)
[2017-09-23 08:18] LABS: Platelet Estimate Slight Decrease (Normal)
--- NOTE | 2017-09-23 14:27 | Internal Med Progress Note ---
Date of Encounter: 09/23/17 Time of Encounter: 14:25 - Assessment and plan (1) Acute exacerbation of chronic obstructive airways disease Current Visit: Yes Status: Acute Assessment and plan: Continue bronchodilators and IV steroids (decreased to 40mg IV q12h, will transition to Prednisone 40mg PO qd in am) Continue Rocephin and azithromycin. O2 supplementation. monitor O2 sat, O2 sat goal: 88-92% (2) Community acquired pneumonia Current Visit: Yes Status: Acute Assessment and plan: continue abx f/u blood cultures O2 supplementation Qualifiers: Laterality: unspecified laterality Qualified Code(s): J18.9 - Pneumonia, unspecified organism (3) Severe sepsis Current Visit: Yes Status: Resolved (4) DVT prophylaxis Current Visit: Yes Status: Acute Assessment and plan: heparin SQ (5) Thrombocytopenia Current Visit: Yes Status: Resolved (6) Acute respiratory failure with hypoxia Current Visit: Yes Status: Acute Assessment and plan: Patient continues to be hypoxic and requiring O2 supplementation. Reports of not being on Home oxygen, continue to wean off O2 as tolerated. Goal O2 sat: 88-92% Most likely due to COPD with superimposed pneumonia. Wean FiO2 as tolerated while treating underlying conditions. High risk for complications. (7) Tobacco abuse Current Visit: Yes Status: Acute Assessment and plan: smoking cessation counseling provided pt not ready to quit refused nicotine replacement therapy (8) Hypokalemia Current Visit: Yes Status: Acute Assessment and plan: K supplemented continue to monitor electrolytes and replace as needed - Subjective Interval history: Pt seen and examined with family present at bedside. Sitting in chair and reports of feeling significantly better compared to previous day. Currently saturating well on room air however desaturates with minimal exertion. Will continue IV steroids at this time and transition to PO steroids in am. 6 min walk test for O2 qualification in am - Constitutional Vitals: Temp Pulse Resp BP Pulse Ox 97.6 F 97 18 123/70 90 09/23/17 11:13 09/23/17 11:13 09/23/17 11:29 09/23/17 11:13 09/23/17 11:29 General appearance: Present: cooperative, A&O X 3, pleasant, no acute distress, answers questions appropriately - Head Head exam: Present: atraumatic, normocephalic - Eye Eye exam: Present: conjuntiva pink, sclera anicteric - Respiratory Respiratory exam: Present: decreased breath sounds. Absent: accessory muscle use, respiratory distress, wheezes - Cardiovascular Cardiovascular exam: Present: RRR, +S1, +S2 - GI/Abdominal GI/Abdominal exam: Present: normal bowel sounds, soft, no peritoneal signs. Absent: distended, tenderness - Extremities Exam Extremities exam: Present: warm, radial pulses palpable and symmetrical. Absent : calf tenderness, pedal edema Internal Medicine: Result - Labs CBC & Chem 7: 09/23/17 07:03 09/23/17 06:23 Labs: Short CBC 09/23/17 Range/Units 07:03 WBC 13.6 H (4.3-11.1) K/mcL Hgb 12.0 L D (12.9-16.9) g/dL Hct 35.1 L (37.5-50.1) % Plt Count 170 D (140-400) K/mcL Neutrophils # 12.5 H (1.6-8.9) K/mcL BMP 09/23/17 06:23 Sodium 143 Potassium 3.2 L D Chloride 113 H Carbon Dioxide 19 BUN 20 Creatinine 0.79 Glucose 131 H Calcium 7.9 L - ABG Interpretation ABG results: PT/INR, D-dimer PT 11.6 Seconds (9.4-12.1) 09/21/17 02:34 Consult Discharge Plan - Plan Referrals: Nieves Casper CNP [Primary Care Provider] - 09/29/17 9:00 am
--- NOTE | 2017-09-23 18:07 | Electrocardiograph Report ---
[place] [id number] Test Date: 2017-09-20 Pat Name: Jose Jamar Department: 104 Room: 2NE30 Gender: M Airplane Cleaner: YANNA : 1950 Requested By: Paolo Stanton Order Number: [id number] Reading MD: Dajuan Nagy DO Measurements Intervals [place] Rate: 108 P: 79 AL: 148 QRS: 25 QRSD: 85 T: 74 QT: 299 QTc: 363 Interpretive Statements SINUS TACHYCARDIA LOW QRS VOLTAGE IN EXTREMITY LEADS [QRS DEFLECTION < 0.5 mV IN LIMB LEADS] ABNORMAL RHYTHM ECG Electronically Signed On 09-23-2017 18:05:54 EST by Dajuan Nagy DO
[2017-09-23] MEDS: *HR* Heparin 5,000 UNIT/ML VIAL SQ SCH (19:20)
[2017-09-23] MEDS ORDERED: methylPREDNISolone 125 MG/2 ML VIAL IVP SCH (22:00)
[2017-09-24] MEDS: Ipratropium/Albuterol Neb 3 ML IH SCH ×4 (00:22→11:16)
[2017-09-24 03:42] LABS: Basophils % 0.3 %; Hematocrit 34.6 % (37.5-50.1); Immature Granulocytes % 2.2 % (0-4); Lymphocytes # 0.7 K/mcL (0.6-4.6); Lymphocytes % 5.6 %; Mean Corpuscular HGB Conc 34.7 g/dL (31.6-35.5); Mean Corpuscular Hemoglobin 31.6 pg (28.0-33.3); Mean Corpuscular Volume 91.1 fL (83.0-100.0); Mean Platelet Volume 11.2 fL (9.4-12.4); Monocytes # 0.6 K/mcL (0.0-1.3); Monocytes % 4.7 %; Neutrophils # 10.3 K/mcL (1.6-8.9); Platelet Count 189 K/mcL (140-400); Red Cell Distribution Width 14.3 % (11.5-14.5); Segmented Neutrophils % 87.2 %
[2017-09-24 04:02] LABS: BUN/Creatinine Ratio 23 (6-26); Blood Urea Nitrogen 19 mg/dL (8-26); Calcium 7.9 mg/dL (8.6-10.8); Carbon Dioxide 19 mEq/L (19-29); Chloride 114 mEq/L (98-109); Glucose 125 mg/dL (70-99); Magnesium 1.6 mg/dL (1.6-2.6); Osmolality,Calculated 302 (280-300); Phosphorous 2.9 mg/dL (2.3-4.7); Potassium 3.5 mEq/L (3.5-4.5); Sodium 144 mEq/L (136-145); eGFR For African Americans > 60 (> 60); eGFR For Non-African Americans > 60 (> 60)
[2017-09-24] MEDS: *HR* Heparin 5,000 UNIT/ML VIAL SQ SCH (06:32)
[2017-09-24] MEDS: cefTRIAXone 1,000 MG in Water for inj. (sterile) 10 ML IVP SCH (08:53)
[2017-09-24] MEDS: Azithromycin 250 MG TABLET PO SCH (08:53)
[2017-09-24] MEDS ORDERED: predniSONE 20 MG TABLET PO SCH (09:00)
[2017-09-24 11:18] VITALS: BP 120/74
--- NOTE | 2017-09-24 12:02 | Discharge Summary ---
Date of Encounter: 09/24/17 Time of Encounter: 11:58 - Discharge Diagnosis (1) Acute exacerbation of chronic obstructive airways disease Priority: Primary Status: Acute (2) Community acquired pneumonia Priority: Primary Status: Acute Qualifiers: Laterality: unspecified laterality Qualified Code(s): J18.9 - Pneumonia, unspecified organism (3) Severe sepsis Priority: Primary Status: Resolved (4) DVT prophylaxis Priority: Secondary Status: Acute (5) Thrombocytopenia Priority: Secondary Status: Resolved (6) Acute respiratory failure with hypoxia Priority: Primary Status: Acute (7) Tobacco abuse Priority: Secondary Status: Acute (8) Hypokalemia Priority: Secondary Status: Resolved - Discharge Medications Prescriptions: Albuterol Sulfate [Albuterol Inhaler] 1 puff IH Q4HR PRN #2 hfa.aer.ad PRN Reason: shortness of breath Azithromycin [Zithromax] 500 mg PO DAILY #2 tablet Fluticasone/Vilanterol [Breo Ellipta 100-25 Mcg INH] 1 each IH DAILY #1 blst.w.dev predniSONE [PredniSONE] 40 mg PO DAILY #4 tablet Home Medications: Sertraline [Zoloft] 50 mg PO 2XW 05/26/17 [History] Albuterol Sulfate [Albuterol Inhaler] 1 puff IH Q4HR PRN #2 hfa.aer.ad 09/24/17 [Rx] Azithromycin [Zithromax] 500 mg PO DAILY #2 tablet 09/24/17 [Rx] Fluticasone/Vilanterol [Breo Ellipta 100-25 Mcg INH] 1 each IH DAILY #1 blst.w.dev 09/24/17 [Rx] predniSONE [PredniSONE] 40 mg PO DAILY #4 tablet 09/24/17 [Rx] Allergies/Adverse Reactions: 3 Allergy/AdvReac Type Severity Reaction Status Date / Time No Known Allergies Allergy Verified 05/26/17 07:48 Date of admission: 09/21/17 00:03 Primary care physician: Nieves Casper CNP Discharging clinician: Nakia Kim Anticipated date of discharge: 09/24/17 - Patient Status Disposition: Home, Self-Care Condition: Fair - Discharge Instructions Follow Up With: Nieves Casper CNP [Primary Care Provider] - 09/29/17 9:00 am Additional Instructions: Please follow up with your primary care physician within five days after your discharge from the hospital. Please follow up with special loan officer within one to two weeks after your discharge from the hospital. Please continue to take Prednisone and Azithromycin as prescribed. Please continue to use Breo Ellipta INH twice a day. Albuterol inhaler has been added to your home meds. Use this inhaler as needed for shortness of breath. Resume all other medications as prescribed by your primary care physician. Smoking cessation is advised. - Diet and Activity Activity: increase activity as tolerated, wear oxygen at all times Diet: advance to your usual diet Hospital course: Mr. Roldan is a 66 year old male with PMH of COPD who is admitted for acute respiratory distress secondary to CAP and COPD exacerbation. He was started on IV steroids, bronchodilators, abx, and O2 supplementation. He responded appropriately to therapy, however remained O2 dependent. He qualified for home oxygen and will be discharged to home with Oxygen. Extensive smoking cessation counseling has been provided to the patient. At this time, he is hemodynamically stable and will be discharged to home with home oxygen, prednisone, and abx. He will f/u with PCP and pulm after discharge. - Time Spent with Patient Total time spent providing and/or coordinating discharge services: Less than 30 minutes - Constitutional Vitals: Temp Pulse Resp BP Pulse Ox 98.4 F 66 14 120/74 92 09/24/17 11:15 09/24/17 11:15 09/24/17 11:15 09/24/17 11:15 09/24/17 11:15 General appearance: Present: cooperative, A&O X 3, pleasant, no acute distress, answers questions appropriately - Head Head exam: Present: atraumatic, normocephalic - Eye Eye exam: Present: conjuntiva pink, sclera anicteric - Respiratory Respiratory exam: Present: CTAB. Absent: accessory muscle use, respiratory distress, wheezes - Cardiovascular Cardiovascular exam: Present: RRR, +S1, +S2. Absent: diastolic murmur, gallop, rubs, systolic murmur - GI/Abdominal GI/Abdominal exam: Present: normal bowel sounds, soft, no peritoneal signs. Absent: distended, tenderness - Extremities Exam Extremities exam: Present: warm, radial pulses palpable and symmetrical. Absent : calf tenderness, cyanotic, pedal edema - Neurological Exam Neurological exam: Present: alert, oriented X3 - Psychiatric Psychiatric exam: Present: normal affect, normal mood
== END 2017-09-24 13:23 | disposition home or self-care (01) | DRG 871 ==
LOC: 3BNU 18:29 → EMEROO 18:29 → 3BNU 20:57 → SUATTDRO 09-21 00:03 → 2NENU 09-21 02:12
PROVIDERS: ADMIT Internal Medicine Hematology & Oncology; ATTEND Internal Medicine

== ENCOUNTER 2020-03-29 18:51 | Inpatient (IN) ==
[2020-03-29] MEDS ORDERED: 0.9 % Sodium Chloride 1,000 ML IVC ONE (19:02)
[2020-03-29] MEDS ORDERED: Ondansetron 4 MG/2 ML VIAL IVP ONE (19:24)
[2020-03-29 19:34] LABS: Basophils # 0.1 K/mcL (0.0-0.2); Basophils % 0.8 %; Eosinophils # 0.2 K/mcL (0.0-0.6); Eosinophils % 1.8 %; Hematocrit 42.8 % (37.5-50.1); Hemoglobin 14.3 g/dL (12.9-16.9); Immature Granulocytes % 0.4 % (0-4); Lymphocytes # 0.8 K/mcL (0.6-4.6); Mean Corpuscular HGB Conc 33.4 g/dL (31.6-35.5); Mean Corpuscular Hemoglobin 31.6 pg (28.0-33.3); Mean Corpuscular Volume 94.5 fL (83.0-100.0); Monocytes # 0.5 K/mcL (0.0-1.3); Monocytes % 6.4 %; Neutrophils # 6.8 K/mcL (1.6-8.9); Platelet Count 179 K/mcL (140-400); Red Blood Count 4.53 M/mcL (4.19-5.50); Red Cell Distribution Width 13.4 % (11.5-14.5); Segmented Neutrophils % 81.6 %; White Blood Count 8.3 K/mcL (4.3-11.1)
[2020-03-29 19:47] LABS: BUN/Creatinine Ratio 18 (6-26); Blood Urea Nitrogen 21 mg/dL (8-23); Calcium 8.5 mg/dL (8.6-10.3); Carbon Dioxide 21 mEq/L (23-29); Chloride 108 mEq/L (98-107); Creatine Kinase 40 Units/L (30-223); Glucose 114 mg/dL (70-105); Magnesium 1.9 mg/dL (1.6-2.6); Osmolality,Calculated 288 (280-300); Potassium 3.9 mEq/L (3.5-5.1); Sodium 137 mEq/L (136-145); eGFR For African Americans > 60 (> 60); eGFR For Non-African Americans > 60 (> 60)
[2020-03-29] MEDS ORDERED: Isovue-370 500 ML BOTTLE IVP ONE (20:03)
[2020-03-29 21:02] LABS: Bilirubin,Urine Negative (Negative); Blood,Urine Trace (Negative); Clarity,Urine Clear (Clear); Color,Urine Yellow (Yellow); Glucose,Urine (UA) Normal (Normal); Ketones,Urine 15 mg/dL (Negative); Leukocyte Esterase,Urine Negative (Negative); Nitrite,Urine Negative (Negative); PH,Urine 6.5 pH Units (5.0-8.0); Protein,Urine Negative (Neg-Trace); Urobilinogen,Urine Normal (Normal)
[2020-03-29 21:04] LABS: Bacteria,Urine None Seen per hpf (None-Few); Hyaline Casts,Urine None Seen per lpf (None-Few); RBC,Urine 0-3 per hpf (0-3); Squamous Epithelial Cell,Urine Few per lpf (None-Few); WBC,Urine 0-3 per hpf (0-3)
[2020-03-30] MEDS ORDERED: Ondansetron ODT 4 MG TAB.RAPDIS SL PRN (04:09)
[2020-03-30] MEDS ORDERED: Naloxone 0.4 MG/ML INJ IVP PRN (04:09)
[2020-03-30] MEDS ORDERED: Ringers Solution, Lactated 1,000 ML IVC SCH (04:15)
[2020-03-30] MEDS ORDERED: *HR* Heparin 5,000 UNIT/ML VIAL SQ SCH (06:00)
[2020-03-30 06:53] LABS: Basophils # 0.1 K/mcL (0.0-0.2); Basophils % 0.7 %; Eosinophils # 0.2 K/mcL (0.0-0.6); Eosinophils % 3.3 %; Hematocrit 43.7 % (37.5-50.1); Hemoglobin 14.3 g/dL (12.9-16.9); Immature Granulocytes % 0.4 % (0-4); Lymphocytes % 14.1 %; Mean Corpuscular HGB Conc 32.7 g/dL (31.6-35.5); Mean Corpuscular Hemoglobin 31.4 pg (28.0-33.3); Mean Corpuscular Volume 95.8 fL (83.0-100.0); Mean Platelet Volume 10.6 fL (9.4-12.4); Monocytes # 0.5 K/mcL (0.0-1.3); Monocytes % 7.2 %; Neutrophils # 5.4 K/mcL (1.6-8.9); Platelet Count 188 K/mcL (140-400); Red Blood Count 4.56 M/mcL (4.19-5.50); Red Cell Distribution Width 13.7 % (11.5-14.5); Segmented Neutrophils % 74.3 %; White Blood Count 7.2 K/mcL (4.3-11.1)
[2020-03-30 06:56] LABS: Prothrombin Time 11.4 Seconds (9.4-12.1)
[2020-03-30 07:13] LABS: Alanine Aminotransferase 11 Units/L (7-52); Albumin 3.8 g/dL (3.5-5.7); Albumin/Globulin Ratio 1.7 (1.1-2.2); Alkaline Phosphatase 65 Units/L (34-104); Aspartate Amino Transferase 14 Units/L (13-39); BUN/Creatinine Ratio 18 (6-26); Bilirubin,Total 0.4 mg/dL (0.3-1.0); Blood Urea Nitrogen 19 mg/dL (8-23); Calcium 8.6 mg/dL (8.6-10.3); Carbon Dioxide 26 mEq/L (23-29); Chloride 106 mEq/L (98-107); Globulin 2.3 g/dL (2.4-3.5); Glucose 87 mg/dL (70-105); Magnesium 2.1 mg/dL (1.6-2.6); Osmolality,Calculated 290 (280-300); Phosphorous 2.8 mg/dL (2.7-4.5); Potassium 4.1 mEq/L (3.5-5.1); Sodium 139 mEq/L (136-145); Total Protein 6.1 g/dL (6.4-8.9); eGFR For African Americans > 60 (> 60); eGFR For Non-African Americans > 60 (> 60)
[2020-03-30 07:25] LABS: Thyroid Stimulating Hormone 0.754 mcIU/mL (0.340-5.600)
[2020-03-30] MEDS ORDERED: 0.9 % Sodium Chloride 1,000 ML IVC SCH (08:45)
[2020-03-30 08:47] LABS: Estimated Average Glucose 126 mg/dl
[2020-03-30] MEDS ORDERED: Nicotine 14 MG PATCH.TD24 TD SCH (09:00)
[2020-03-30] MEDS ORDERED: Aspirin 81 MG TAB.CHEW PO SCH (09:15)
[2020-03-30] MEDS ORDERED: Tiotropium 18 MCG inhalation IH SCH (10:00)
[2020-03-30] MEDS ORDERED: Budesonide/Formoterol 160/4.5 1 PUFF INH IH SCH (10:00)
[2020-03-30] MEDS ORDERED: dimenhyDRINATE 50 MG TABLET PO ONE (12:53)
[2020-03-30] MEDS ORDERED: predniSONE 20 MG TABLET PO SCH (13:00)
[2020-03-30 14:13] VITALS: BP 111/74
== END 2020-03-30 15:08 | disposition home or self-care (01) | DRG 149 ==
LOC: EMEROOARM 18:51 → 3BNU 18:51 → SUATTDRO 22:14 → 3BNU 22:46
PROVIDERS: ADMIT Internal Medicine; ATTEND Internal Medicine